=== PATIENT | male | born 1970 | race Caucasian/White ===

== ENCOUNTER 2019-02-13 21:27 | Emergency (ER) | payer BC ==
[~2019-02-13] VITALS: Ht 167.6 cm; Wt 72.7 kg
[~2019-02-13 21:27] MED LIST: ASPI-831 PO; ATOR40TA68 PO; EMPA10TA PO; LOSA25TA2 PO; METF100010 PO; METF500T PO; PANT40TA4 PO
[2019-02-13 21:38] VITALS: Ht 167.6 cm; Wt 72.7 kg
[2019-02-14] MEDS ORDERED: POTASSIUM CHLORIDE 20 MEQ in SOD CHLORIDE 0.9% 1,000 ML IV SCH (02:54)
[2019-02-14] MEDS ORDERED: DOCUSATE SODIUM 100 MG CAP PO PRN (03:00)
[2019-02-14] MEDS ORDERED: ONDANSETRON 4 MG INJ IV PRN (03:00)
[2019-02-14] MEDS ORDERED: NITROGLYCERIN (SL) 0.4 MG TAB SL PRN (03:00)
[2019-02-14] MEDS ORDERED: NACL 0.9% 3 ML SYG IV SCH (03:00)
[2019-02-14] MEDS ORDERED: DEXTROSE 50% 50 ML SYRINGE IV PRN ×2 (03:00)
[2019-02-14] MEDS ORDERED: ONDANSETRON 4 MG TAB PO PRN (03:00)
[2019-02-14] MEDS ORDERED: ACETAMINOPHEN 325 MG TAB PO PRN ×2 (03:00)
[2019-02-14] MEDS ORDERED: GLUCOSE GEL 15 GRAM TUBE BUCCAL PRN (03:00)
[2019-02-14] MEDS ORDERED: GLUCAGON 1 MG INJ IM PRN (03:00)
[2019-02-14] MEDS ORDERED: GLUCOSE GEL 15 GRAM TUBE PO PRN ×2 (03:00)
[2019-02-14] MEDS ORDERED: morphine 2 MG INJ IV PRN (03:00)
[2019-02-14] MEDS ORDERED: INSULIN GLARGINE [LANTus] (100 UNITS/ML) SYG SC ONE (03:30)
[2019-02-14] MEDS ORDERED: NS + KCL 20 MEQ 1,000 ML IV SCH (03:30)
[2019-02-14] MEDS ORDERED: INSULIN REGULAR, HUMAN 100 UNIT/1 ML 3ML VIAL IV ONE (06:00)
[2019-02-14] MEDS ORDERED: ACCU-CHEK XX SCH (07:00)
[2019-02-14] MEDS ORDERED: metFORMIN 500 MG TAB PO SCH (08:00)
[2019-02-14] MEDS ORDERED: ASPIRIN 81 MG TAB PO SCH (09:00)
[2019-02-14] MEDS ORDERED: LOSARTAN 25 MG TAB PO SCH (09:00)
[2019-02-14] MEDS ORDERED: ENOXAPARIN 40 MG/0.4 ML SYG SC SCH (09:00)
[2019-02-14 15:06] VITALS: BP 143/96; PULSE 87; RESP 20
[2019-02-14] MEDS ORDERED: ATORVASTATIN 40 MG TAB PO SCH (21:00)
[2019-02-14] MEDS ORDERED: PANTOPRAZOLE (EC) 40 MG TAB PO SCH (21:00)
== END 2019-02-14 15:20 | disposition home or self-care (01) ==
LOC: E/R 21:27 → CANBEDREQ 02-14 13:40 → E/R 02-14 15:20
DX: R07.9 Chest pain, unspecified (principal); I10 Essential (primary) hypertension; Z79.82 Long term (current) use of aspirin; Z87.891 Personal history of nicotine dependence
CPT/HCPCS: 36415; 71045; 80048; 80053; 80061; 82962; 83036; 83880; 84443; 84484; 85025; 93005; 93306; 96372; 96374; 99285; J1650; J1815; J3480; J7030